=== PATIENT | male | born 1990 | race Caucasian/White ===

== ENCOUNTER → 2023-02-21 10:24 | Outpatient (BNVA) | payer OTHER, SELFPAY | PROVIDERS: Visit Provider Emergency Medicine | DX: B34.9 Viral infection, unspecified (principal); J45.40 Moderate persistent asthma, uncomplicated | CPT/HCPCS: 87400; 87426 ==

== ENCOUNTER → 2024-03-06 13:41 | Outpatient (BNVA) | payer OTHER, SELFPAY | PROVIDERS: Visit Provider Nurse Practitioner | DX: J02.9 Acute pharyngitis, unspecified (principal) | CPT/HCPCS: 87880 ==